=== PATIENT | female | born 2000 | race Caucasian/White ===

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

== ENCOUNTER 2020-02-10 19:39 | Outpatient (CLI) | payer MEDICAID ==
[2018-06-14 22:52] VITALS: BMI 22.7
[~2020-02-10 19:39] MED LIST changes: +HYDROCODON-ACE1 EA10 PO; +MOTRIN600 MG PO
[2020-02-10 20:30] LABS: BILIRUBIN NEGATIVE (NEGATIVE); KETONE NEGATIVE (NEGATIVE); UROBILINOGEN NORMAL mg/dL (< 2)
[2020-02-10 20:32] LABS: EPITHELIAL CELLS OCC /hpf (0-5); WHITE CELLS - URINE 0-5 HPF (0-4)
[2020-02-10 20:33] LABS: BACTERIA FEW HPF (NONE SEEN); NITRITE NEGATIVE (NEGATIVE)
== END 2020-02-10 20:55 | disposition home or self-care (01) ==
LOC: D.LDO 19:39
PROVIDERS: ATTEND Obstetrics & Gynecology
DX: O26.853 Spotting complicating pregnancy, third trimester (principal)